=== PATIENT | female | born 1960 | race Caucasian/White ===

== ENCOUNTER → 2016-05-24 | Outpatient (CLI) | payer OTHER ==
[~2016-05-24] MED LIST: BUPR150T89 PO; CALC1CAP4 PO; ESTR1PAT TOP
== END ==
LOC: WC.BC 08:20
PROVIDERS: ATTEND Family Medicine
DX: Z12.31 Encounter for screening mammogram for malignant neoplasm of breast (principal); N64.59 Other signs and symptoms in breast; Z80.3 Family history of malignant neoplasm of breast
CPT/HCPCS: 77063; G0202